=== PATIENT | female | born 1980 | race African-American/Black ===

== ENCOUNTER 2017-04-07 22:05 | Emergency (ER) | payer SELFPAY ==
[~2017-04-07] VITALS: Ht 162.6 cm; Wt 119.3 kg
[2017-04-07 22:07] VITALS: BP 117/80
== END 2017-04-07 23:21 | disposition left against medical advice (07) ==
LOC: ED 22:05
DX: Z53.21 Procedure and treatment not carried out due to patient leaving prior to being seen by health care provider (principal)